=== PATIENT | male | born 1965 | race Caucasian/White ===

== ENCOUNTER 2022-04-07 11:38 | Emergency (ER) | payer MEDICARE, OTHER ==
[~2022-04-07] VITALS: Ht 177.8 cm; Wt 68.0 kg
[2022-04-07] MEDS ORDERED: HYDROCODON-ACE1 EA11 PO (12:51)
== END 2022-04-07 13:46 | disposition home or self-care (01) ==
LOC: ED 11:38
DX: S02.641A Fracture of ramus of right mandible, initial encounter for closed fracture (principal); Y04.8XXA Assault by other bodily force, initial encounter
CPT/HCPCS: 70450; 70486; 71045; 99284-25; A9270